=== PATIENT | female | born 1940 | race Caucasian/White ===

== ENCOUNTER 2019-06-16 17:25 | Emergency (ER) | payer MEDICARE ==
[~2019-06-16] VITALS: Ht 157.5 cm; Wt 52.3 kg
[2019-06-16 17:31] VITALS: Ht 157.5 cm; Wt 52.3 kg
[2019-06-16] MEDS ORDERED: KETOROLAC 30 MG INJ IM STA (18:24)
[2019-06-16] MEDS ORDERED: TRAM50TA PO (19:06)
[2019-06-16] MEDS ORDERED: IBUP-1561 PO (19:06)
--- NOTE | 2019-06-16 19:13 | ERD ---
ER Documentation Chief Complaint Chief Complaint c/o left sided pain after fall today. No KO HPI 79-year-old female presents with left rib pain after bending over to adjust a light and losing her balance and hitting her left rib area on the nightstand. She denies hemoptysis, head injury, neck pain, loss of consciousness, additional symptoms other than her left chest wall pain. ROS All systems reviewed and are negative except as per history of present illness. Medications Home Meds Active Scripts Tramadol Hcl* (Ultram*) 50 Mg Tablet, 50 MG PO Q6H PRN for PAIN for 10 Days, #20 TAB Prov:MADDY FERRARA MD 06/16/19 Ibuprofen* (Motrin*) 400 Mg Tab, 400 MG PO Q6, #20 TAB Prov:MADDY FERRARA MD 06/16/19 PMhx/Soc History of Surgery: Yes () Anesthesia Reaction: No Hx Neurological Disorder: No Hx Respiratory Disorders: No Hx Cardiac Disorders: Yes (HTN) Hx Psychiatric Problems: No Hx Miscellaneous Medical Probl: Yes (OSTEOPOROSIS) Smoking Status: Never smoker FmHx Family History: No diabetes, No coronary disease, No other Physical Exam Vitals Vital Signs Date Temp Pulse Resp B/P (MAP) Pulse Ox O2 O2 Flow FiO2 Time Delivery Rate 06/16/19 98.7 91 22 188/86 97 17:31 (120) Physical Exam Const: No acute distress Head: Atraumatic Eyes: Normal Conjunctiva ENT: Normal External Ears, Nose and Mouth. Neck: Full range of motion. No meningismus. Resp: Clear to auscultation bilaterally. Tenderness in the left chest wall approximately T8-T9 no crepitance or skin changes or deformities. Cardio: Regular rate and rhythm, no murmurs Abd: Soft, non tender, non distended. Normal bowel sounds Skin: No petechiae or rashes Back: No midline or flank tenderness Ext: No cyanosis, or edema Neur: Awake and alert Psych: Normal Mood and Affect Results 24 hrs Current Medications Medications Dose Sig/Chung Start Time Status Last (Trade) Ordered Route PRN Stop Time Admin Dose Reason Admin Ketorolac 30 mg ONCE STAT 06/16/19 DC 06/16/19 Tromethamine IM 18:24 18:40 (Toradol) 06/16/19 18:25 Procedures/MDM X-ray left ribs 2V Interpreted by me: Soft Tissue: No acute abnormalities Bones: Nondisplaced fracture of T8-T9 laterally. Mediastinum/Cardiac Silhouette/Lungs:No acute abnormalities impression- nondisplaced fracture approximately T8-T9 on the left lateral rib x-ray. Even Toradol 30 mg IM. Patient presents with signs and symptoms of nondisplaced left lateral rib fractures x2 without signs of hemothorax, pneumothorax, pneumonia, rest or distress, additional complications. She will discharged home after a dose of IM tramadol with tramadol, ibuprofen, instructions for deep breathing, return precautions for blood, fevers, shortness of breath, new or worsening symptoms. The patient was stable with no new complaints during the ER course. Clinically, there is no current evidence to suggest meningitis, sepsis, acute abdomen, pneumonia, stroke, acute coronary syndrome, pulmonary embolism, aortic dissection or any other emergent condition appearing to require further evaluation or hospitalization. Patient counseled regarding my diagnostic impression and care plan. Prior to discharge all questions answered. Pt agrees with treatment plan and understands strict return precautions. Pt is instructed to follow up with primary care provider within 24-48 hours. Precautionary instructions provided including instructions to return to the ER if not improving or for any worsening or changing symptoms or concerns. The patient's blood pressure was elevated which I suspect is due to pain (>120/80) but appears stable without evidence of hypertension emergency or urgency. The patient was counseled about the risks of hypertension and urged to pursue outpatient monitoring and therapy within a week with their primary care physician. I discussed the findings with the patient. I advised the patient to follow-up with the primary physician in about 1-2 days, sooner if needed and return if any concern. Disclaimer: Inadvertent spelling and grammatical errors are likely due to EHR/dictation software use and do not reflect on the overall quality of patient care. Also, please note that the electronic time recorded on this note does not necessarily reflect the actual time of the patient encounter. Departure Diagnosis: Primary Impression: Rib fractures Encounter type: initial encounter Rib fracture type: multiple ribs Fracture type: closed Laterality: left Qualified Codes: S22.42XA - Multiple fractures of ribs, left side, initial encounter for closed fracture Additional Impression: Hypertension Hypertension type: unspecified Qualified Codes: I10 - Essential (primary) hypertension Condition: Stable Patient Instructions: Rib Fracture (Broken Rib) Additional Instructions: There appear to be 2 broken ribs in the area of pain. Recheck for blood, fevers, shortness of breath, new worsening symptoms. Recommend take regular deep breaths to prevent pneumonia. See primary doctor for follow-up. MADDY FERRARA MD Jun 16, 2019 19:13
[2019-06-16 19:52] VITALS: BP 171/77; PULSE 70; RESP 18
== END 2019-06-16 19:53 | disposition home or self-care (01) ==
LOC: FTE 17:25
DX: S22.42XA Multiple fractures of ribs, left side, initial encounter for closed fracture (principal); I10 Essential (primary) hypertension; W01.198A Fall on same level from slipping, tripping and stumbling with subsequent striking against other object, initial encounter; Y92.9 Unspecified place or not applicable
CPT/HCPCS: 71100; 96372; 99284; J1885